=== PATIENT | male | born 1945 | race Caucasian/White ===

== ENCOUNTER 2022-10-09 13:43 | Outpatient (CLI) | payer MEDICARE, BC | END 2022-10-09 13:44 | disposition home or self-care (01) | LOC: CSHCT 13:43 | PROVIDERS: ATTEND Neurological Surgery | DX: M48.061 Spinal stenosis, lumbar region without neurogenic claudication (principal); M43.16 Spondylolisthesis, lumbar region | CPT/HCPCS: 72131 ==